=== PATIENT | male | born 1935 | race Caucasian/White ===

== ENCOUNTER 2020-02-29 23:38 | Emergency (ER) | payer MEDICARE, OTHER, SELFPAY ==
[2020-02-29 23:50] VITALS: PULSE 77; O2SAT 98
[2020-02-29 23:55] VITALS: BP 211/89; PULSE 80; RESP 18; TEMP 36.4; O2SAT 98; BMI 24.8
[2020-03-01] VITALS (7 sets, daily range): BP systolic 190–207; BP diastolic 82–91; PULSE 61–86; RESP 13–20; TEMP 36.8; O2SAT 95–100
--- NOTE | 2020-03-01 00:03 | DI.RAD.S_ITS ---
PROCEDURE: XR RIBS RT MIN 3V W CXR 1V INDICATIONS: fall TECHNIQUE: 3 views of the right ribs were acquired, along with a single view chest. COMPARISON: [facility], CT, CT CHEST WO CON, 03/01/2020, 0:51. FINDINGS: Surgical changes and devices: None. Bones and chest wall: Right 5th and 6th rib fractures are noted, better appreciated on CT chest of 03/01/2020.. Old left rib fractures are noted. No suspicious bony lesions. Overlying soft tissues appear unremarkable. Lungs and pleura: No pleural effusions or pneumothorax. Lungs appear clear. Mediastinum: Mediastinal contours appear normal. Heart size is normal. IMPRESSION: Acute/subacute right rib fractures as above. Dictated by: Jane Ag M.D. on 03/01/2020 at 8:39 Approved by: Jane Ag M.D. on 03/01/2020 at 8:41
--- NOTE | 2020-03-01 00:47 | DI.CT.S_ITS ---
PROCEDURE: CT CHEST WO CON INDICATIONS: Fall/injury/pain TECHNIQUE: Noncontrast 5 mm thick sections acquired from the pulmonary apices to the posterior costophrenic angles. 1 mm lung window, 5 mm thick coronal and sagittal and 7 mm axial MIP reformats were then acquired. For radiation dose reduction, the following was used: automated exposure control, adjustment of mA and/or kV according to patient size. COMPARISON: [facility], CR, XR RIBS RT MIN 3V W CXR 1V, 02/29/2020, 23:54. FINDINGS: Image quality: Excellent. Lungs and pleura: No acute air space opacities. Minimal basilar atelectasis. No laceration. A few scattered pulmonary nodules. For example: -Left lower lobe subpleural nodule measuring 5 mm, (2/219). -left upper lobe juxta fissural nodule 6 mm, (2/172). This may represent an intrapulmonary lymph node. -Right middle lobe pulmonary nodule 3 mm, (2/220). - A punctate calcified granuloma. No pleural effusions or pneumothorax. Central and peripheral airways are patent and normal in caliber. Mediastinum: Heart size is normal. Coronary artery calcifications. Mitral calcifications. No pericardial effusion. No mediastinal adenopathy by size criteria. Thoracic aorta and central pulmonary arteries are normal in size. Esophagus is normal in caliber. No hiatal hernia. Bones and chest wall: No suspicious bony lesions. Sclerotic focus in the right lateral 3rd rib likely a bone island. Subtle undulation of the right lateral 5th and 6th ribs likely due to nondisplaced fractures. No vertebral body compression fractures. No axillary or supraclavicular adenopathy by size criteria. Thyroid gland is unremarkable. Abdomen: Hepatic steatosis. No adrenal nodule. Visualized upper abdominal solid organs and bowel loops appear normal in the absence of contrast. IMPRESSION: 1. Nondisplaced right 5th and 6th ribs. 2. No acute airspace opacity. 3. A few small scattered pulmonary nodules measuring up to 6 mm. -Recommend follow-up chest CT in 6-12 months depending on risk factors for lung cancer. 4. Hepatic steatosis. This report is concordant with the overnight preliminary interpretation with additional detail. Dictated by: Kevan Deleon M.D. on 03/01/2020 at 8:34 Approved by: Kevan Deleon M.D. on 03/01/2020 at 8:52
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
[2020-03-01] MEDS: TET,DIPH,PERTUSS(ACELL),VAC/PF 0.5 ML SYRINGE IM (00:58)
[2020-03-01] MEDS: HYDROCODONE/ACET 5/325 TABLET 2 TAB PO (00:59)
[2020-03-01] MEDS: ONDANSETRON 4 MG ODT SL (00:59)
[2020-03-01] MEDS: OXYCODONE/APAP 5/325 PREPACK 1 BOTTLE MISC (02:25)
[2020-03-01] MEDS: ONDANSETRON 4 MG ODT PREPACK 1 BOTTLE MISC (02:25)
== END 2020-03-01 02:33 | disposition home or self-care (01) ==
PROVIDERS: Emergency Provider Emergency Medicine; PCP Family Medicine
DX: S22.41XA Multiple fractures of ribs, right side, initial encounter for closed fracture (principal); W22.8XXA Striking against or struck by other objects, initial encounter; Z23 Encounter for immunization
CPT/HCPCS: 71101; 71250; 90471; 99284; 90715

== ENCOUNTER → 2020-09-08 09:09 | Outpatient (CLI) | payer MEDICARE, OTHER, SELFPAY ==
--- NOTE | 2020-09-08 | DI.MRI.S_ITS ---
PROCEDURE: MR LUMBAR SPINE WO CON INDICATIONS: Radiculopathy, lumbar region TECHNIQUE: Noncontrast sagittal T1 spin echo and T2 fast echo, sagittal STIR, axial T1 and T2 fast spin echo through the lumbar spine. In cases with scoliosis, additional coronal T2 fast spin echo may be performed. COMPARISON: None. FINDINGS: Image quality: Excellent. Alignment and Curvature: No plain films are available for comparison, for numbering purposes. Thus, for the purposes of this examination, 5 lumbar type vertebral bodies will be presumed, as denoted on the montage panel. This should be confirmed and correlated with plain films, prior to any lumbar spinal intervention. There is loss of normal lumbar lordosis. There is mild grade 1 retrolisthesis of L2 on L3, L3 on L4, and L5 on S1. Bone Marrow: Marrow is of normal overall signal. No acute vertebral body compression fractures. There is mild reactive signal throughout the endplates of the lumbar spine. Spinal Cord: Conus medullaris terminates at the upper L1 level. Visualized cord demonstrates normal signal and size. Paraspinous Soft Tissues: No paravertebral masses. T12-L1: Mild disc desiccation. No significant canal, or foraminal stenosis. L1-L2: Mild disc desiccation and diffuse disc bulge. Mild facet and ligamentum flavum hypertrophy. Mild epidural lipomatosis. Mild canal stenosis. Mild bilateral foraminal stenosis. L2-L3: Moderate disc height loss and desiccation. Mild diffuse disc bulge. Mild facet and ligamentum flavum hypertrophy. Mild epidural lipomatosis. Mild canal stenosis. Mild bilateral foraminal stenosis. L3-L4: Moderate disc height loss and desiccation. Mild diffuse disc bulge. Mild facet and ligamentum flavum hypertrophy. Mild epidural lipomatosis. Mild canal stenosis. Mild left and moderate right foraminal stenosis. L4-L5: Severe disc height loss and desiccation. Mild diffuse disc bulge. Mild facet and ligamentum flavum hypertrophy. Mild epidural lipomatosis. Mild canal stenosis. Moderate foraminal stenosis bilaterally. L5-S1: Moderate disc height loss and desiccation. Mild diffuse disc bulge with superimposed broad-based left far lateral protrusion/osteophyte. Moderate facet hypertrophy bilaterally. Mild canal stenosis. Moderate right and severe left foraminal stenosis. Left L5 nerve root compression. IMPRESSION: 1. Multilevel degenerative disc and facet disease, as well as ligamentum flavum hypertrophy and epidural lipomatosis. 2. Mild multilevel canal stenoses. 3. Multilevel foraminal stenoses, worst at L5-S1 on the left where there is associated intraforaminal nerve root compression. Recommend correlation with clinical symptoms to ascertain relevance of this finding. Dictated by: Asif Ghotra M.D. on 09/08/2020 at 9:25 Approved by: Asif Ghotra M.D. on 09/08/2020 at 9:32
== END ==
PROVIDERS: PCP Family Medicine; Referring Provider Family Medicine; Visit Provider Family Medicine
DX: M51.16 Intervertebral disc disorders with radiculopathy, lumbar region (principal); M48.061 Spinal stenosis, lumbar region without neurogenic claudication; M51.17 Intervertebral disc disorders with radiculopathy, lumbosacral region; M48.07 Spinal stenosis, lumbosacral region; E88.2 Lipomatosis, not elsewhere classified
CPT/HCPCS: 72148

== ENCOUNTER → 2021-01-30 09:20 | Outpatient (CLI) | payer MEDICARE, OTHER, SELFPAY ==
--- NOTE | 2021-01-30 | DI.RAD.S_ITS ---
PROCEDURE: XR FOOT RT MIN 3V INDICATIONS: PAIN IN LATERAL RIGHT FOOT TECHNIQUE: 3 views of the foot were acquired. COMPARISON: None. FINDINGS: Bones: No fractures or dislocations. No suspicious bony lesions. Mild hallux valgus metatarsus prima varus alignment and medial bunion. There is severe narrowing of the 1st MTP joint with bone on bone contact, subchondral sclerosis and cystic change. Periarticular osteophyte formation is present. Retrocalcaneal and plantar bone spurs. Soft tissues: No tibiotalar joint effusion. Achilles tendon appears normal. IMPRESSION: 1. 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 2. Hallux valgus alignment and medial bunion. 3. Calcaneal enthesopathy. Dictated by: Carlos Valencia [facility] Interpreted: Freddie Tidwell MD on 01/30/2021 at 9:48 Transcribed by: VEDA on 01/30/2021 at 9:49 Approved by: Freddie Tidwell M.D. on 01/30/2021 at 16:48
== END ==
PROVIDERS: PCP Family Medicine; Referring Provider Family Medicine; Visit Provider Family Medicine
DX: M79.671 Pain in right foot (principal); M19.071 Primary osteoarthritis, right ankle and foot; M20.11 Hallux valgus (acquired), right foot; M21.611 Bunion of right foot; M77.31 Calcaneal spur, right foot
CPT/HCPCS: 73630

== ENCOUNTER → 2021-09-27 10:35 | Outpatient (CLI) | payer MEDICARE, OTHER, SELFPAY ==
[2021-09-27 11:48] LABS: Alanine Aminotransferase 34 IU/L (<50); Albumin 4.4 g/dL (3.5-5.0); Albumin Globulin Ratio 1.4 (1.0-2.8); Alkaline Phosphatase 73 U/L (38-126); Aspartate Aminotransferase 49 IU/L (17-59); BUN Creatinine Ratio 13.9 (6-22); Bilirubin Total 0.9 mg/dL (0.2-1.3); Blood Urea Nitrogen 14 mg/dL (9-20); Calcium 9.4 mg/dL (8.4-10.2); Carbon Dioxide 26 mmol/L (22-32); Chloride 104 mmol/L (98-107); Estimated Glomerular Filt Rate > 60.0 mL/min (>60); Globulin 3.1 g/dL (1.7-4.1); Glucose 99 mg/dL (80-110); HEMOLYSIS < 15 (0-50); Potassium 4.5 mmol/L (3.4-5.1); Sodium 139 mmol/L (137-145); Total Protein 7.5 g/dL (6.3-8.2)
--- NOTE | 2021-09-27 11:59 | DI.CT.S_ITS ---
PROCEDURE: CT ABDOMEN PELVIS WO/W CON INDICATIONS: Malignant neoplasm of bladder, unspecified TECHNIQUE: Optional 5 mm thick noncontrast images acquired from the diaphragm to the symphysis pubis. After the administration of intravenous contrast, 5 mm thick images acquired from the diaphragm to the symphysis pubis after a 10-minute delay. 2 mm thick coronal and sagittal reformats were then performed of the kidneys and ureters. For radiation dose reduction, the following was used: automated exposure control, adjustment of mA and/or kV according to patient size. COMPARISON: None. FINDINGS: Image quality: Excellent. Lung bases: Lung bases are clear. Heart size is normal. Calcification of the mitral annulus. Urinary system: Both kidneys are normal in size, without hydronephrosis or nephrolithiasis on pre-contrast images. No perinephric fat stranding. There is normal bilateral renal enhancement. Renal calyces appear normal in morphology when filled with contrast. Opacified portions of both ureters demonstrate normal caliber. Wall thickening of the superior urinary bladder, measuring up to 1.2 cm (5-73), which may reflect the patient's known bladder cancer. Other solid organs: Liver is normal in size and enhancement. Hepatic steatosis. Gallbladder within normal limits . Biliary system is non dilated. Pancreas enhances normally. Spleen is normal in size and enhancement. No adrenal nodules. Peritoneum and bowel: Bowel loops demonstrate normal wall thickness and caliber. Normal appendix. No free fluid or air. Nodes and vessels: No retroperitoneal or mesenteric adenopathy by size criteria. Aorta and inferior vena cava are normal in size. Abdominal wall: Small fat containing periumbilical hernia. Pelvis: No pathologic free pelvic fluid. Small fat containing right inguinal hernia. 2.4 x 1.1 cm fat attenuation lesion is seen in the right rectus femoris, most consistent with an intramuscular lipoma. Bones: No suspicious bony lesions. Multifocal degenerative change. No vertebral body compression fractures. IMPRESSION: 1. Wall thickening of the superior urinary bladder, likely reflecting the patient's known bladder cancer. Dictated by: Jamey Okeefe M.D. on 09/27/2021 at 14:26 Approved by: Jamey Okeefe M.D. on 09/27/2021 at 14:35
== END ==
PROVIDERS: PCP Family Medicine; Referring Provider Family Medicine; Visit Provider Family Medicine
DX: C67.9 Malignant neoplasm of bladder, unspecified (principal); I25.10 Atherosclerotic heart disease of native coronary artery without angina pectoris
CPT/HCPCS: 36415; 74178; 80053

== ENCOUNTER → 2024-02-05 11:21 | Outpatient (CLI) | payer MEDICARE, OTHER, SELFPAY ==
--- NOTE | 2024-02-05 12:00 | DI.MRI.S_ITS ---
PROCEDURE: MR HEAD/BRAIN WO CON INDICATIONS: Other amnesia TECHNIQUE: Non-contrast axial T1 spin echo, axial T2 fast spin echo, sagittal and axial FLAIR, coronal T2 fast spin echo, axial gradient echo, axial diffusion and ADC through the brain. COMPARISON: None. FINDINGS: Image quality: Excellent. CSF spaces: Ventricles appear symmetric in size and shape. Basal cisterns are patent. No extra-axial fluid collections. Brain: No intracranial bleeds or mass effects. There is cerebral volume loss for age. There are periventricular and deep white matter chronic small vessel ischemic changes. Brainstem appears normal. Diffusion-weighted images show no acute infarct. No chronic ischemic insults. Normal intravascular flow voids are present. Skull and face: Calvarial bone marrow is normal in signal. Orbits are normal. Sinuses: Sinuses and mastoids are clear. IMPRESSION: 1. No acute intracranial process. 2. Moderate atrophy and chronic microvascular ischemic changes. Dictated by: Jane Ag M.D. on 02/05/2024 at 21:08 Approved by: Jane Ag M.D. on 02/05/2024 at 21:09
== END ==
PROVIDERS: PCP Family Medicine; Referring Provider Family Medicine; Visit Provider Family Medicine
DX: R41.3 Other amnesia (principal)
CPT/HCPCS: 70551

== ENCOUNTER → 2024-04-09 11:16 | Outpatient (CLI) | payer MEDICARE, OTHER, SELFPAY ==
[2024-04-09 11:55] LABS: Estimated Glomerular Filt Rate > 60 mL/min (>60)
--- NOTE | 2024-04-09 14:26 | DI.CT.S_ITS ---
PROCEDURE: CT IVP A/P W/WO INDICATIONS: MALIGNANT NEOPLASM OF URINARY BLADDER TECHNIQUE: Optional 5 mm thick noncontrast images acquired from the diaphragm to the symphysis pubis. After the administration of intravenous contrast, 5 mm thick images acquired from the diaphragm to the symphysis pubis after a 10-minute delay. 2 mm thick coronal and sagittal reformats were then performed of the kidneys and ureters. For radiation dose reduction, the following was used: automated exposure control, adjustment of mA and/or kV according to patient size. COMPARISON: [facility], CT, CT ABDOMEN PELVIS WO/W CON, 09/27/2021, 12:08. FINDINGS: Image quality: Diagnostic. Kidneys and Ureters: Both kidneys are normal in size, without hydronephrosis or nephrolithiasis. No perinephric fat stranding. There is normal bilateral renal enhancement. Renal calyces appear normal in morphology when filled with contrast. Opacified portions of both ureters demonstrate normal caliber Bladder: Mild generalized thickening of the superior bladder wall. Previously seen nodular filling defects are no longer visualized. No new bladder mass is seen. No calcified bladder stones. OTHER: Lower chest: Mild dependent atelectasis. Heart is mildly enlarged. Mitral annular calcifications are present. Liver: No solid mass. Gallbladder: No radiopaque gallstones or wall thickening. Biliary ducts: No biliary dilation. Pancreas: No ductal dilation. Spleen: Size is within normal limits. Adrenal Glands: No adrenal nodules. Stomach and Bowel: Normal colonic caliber, without significant wall thickening. Normal appendix. Small bowel loops and stomach are unremarkable. Peritoneum: No abnormal intraperitoneal fluid. No free air. Ventral Wall: Tiny fat containing periumbilical hernia. Abdominal Nodes: No retroperitoneal or mesenteric adenopathy by size criteria. Vessels: Aorta and inferior vena cava are normal in size. PELVIS: Pelvic Organs: Prostate is borderline in size and mildly impinges upon the bladder base. Pelvic Nodes: No enlarged lymph nodes. Miscellaneous: Small fat containing right inguinal hernia. Bones: No aggressive osseous abnormality. Geographic area of sclerosis at the superior left femoral head is most likely small focus of chronic osteonecrosis without articular surface collapse. Moderate to severe degenerative changes in the hips. Degenerative changes are also seen in the sacroiliac joints and included spine. IMPRESSION: Mild uniform thickening of the superior bladder wall may represent posttreatment changes although residual bladder malignancy is not entirely excluded. Previously seen areas of irregular nodular bladder wall thickening are no longer seen. No new urothelial filling defect is seen. No bulky lymphadenopathy. Approved by: Nicho Green M.D. on 04/10/2024 at 13:17
== END ==
LOC: CT 11:17
PROVIDERS: Radiology Diagnostic Radiology; PCP Family Medicine; Referring Provider Urology; Visit Provider Urology
DX: C67.9 Malignant neoplasm of bladder, unspecified (principal); I51.7 Cardiomegaly; I34.81 Nonrheumatic mitral (valve) annulus calcification; K40.90 Unilateral inguinal hernia, without obstruction or gangrene, not specified as recurrent
CPT/HCPCS: 36415; 74178; 82565; Q9967

== ENCOUNTER → 2024-10-28 08:46 | Outpatient (CLI) | payer MEDICARE, OTHER, SELFPAY | PROVIDERS: PCP Family Medicine; Referring Provider Family Medicine; Visit Provider Surgery | DX: T81.89XA Other complications of procedures, not elsewhere classified, initial encounter (principal); S91.301A Unspecified open wound, right foot, initial encounter; L53.8 Other specified erythematous conditions | CPT/HCPCS: 11042; 87070; 87075; 87205; 99203; 99213 ==

== ENCOUNTER → 2024-11-04 10:02 | Outpatient (CLI) | payer MEDICARE, OTHER, SELFPAY | LOC: WC 10:03 | PROVIDERS: PCP Family Medicine; Referring Provider Family Medicine; Visit Provider Surgery | DX: T81.89XA Other complications of procedures, not elsewhere classified, initial encounter (principal); S91.301A Unspecified open wound, right foot, initial encounter | CPT/HCPCS: 11042 ==

== ENCOUNTER → 2024-11-18 09:08 | Outpatient (CLI) | payer MEDICARE, OTHER, SELFPAY | LOC: WC 09:10 | PROVIDERS: PCP Family Medicine; Referring Provider Family Medicine; Visit Provider Surgery | DX: T81.89XA Other complications of procedures, not elsewhere classified, initial encounter (principal); S91.301A Unspecified open wound, right foot, initial encounter | CPT/HCPCS: 11042 ==

== ENCOUNTER → 2024-11-25 10:03 | Outpatient (CLI) | payer MEDICARE, OTHER, SELFPAY | PROVIDERS: PCP Family Medicine; Referring Provider Family Medicine; Visit Provider Surgery | DX: S91.301D Unspecified open wound, right foot, subsequent encounter (principal); L84 Corns and callosities | CPT/HCPCS: 99213 ==

== ENCOUNTER → 2024-12-02 09:00 | Outpatient (CLI) | payer MEDICARE, OTHER, SELFPAY | PROVIDERS: PCP Family Medicine; Referring Provider Family Medicine; Visit Provider Surgery | DX: S91.301D Unspecified open wound, right foot, subsequent encounter (principal); T81.89XD Other complications of procedures, not elsewhere classified, subsequent encounter; Z79.01 Long term (current) use of anticoagulants | CPT/HCPCS: 99211; 99213 ==